=== PATIENT | female | born 1970 | race Caucasian/White ===

== ENCOUNTER 2018-11-03 13:33 | Emergency (ER) | payer MEDICAID ==
[~2018-11-03] VITALS: Ht 162.6 cm; Wt 70.3 kg
[2018-11-03 14:24] VITALS: BP 164/91
--- NOTE | 2018-11-03 14:54 | NUR ---
Patient discharged to home in stable condition. Written and verbal after care instructions given. Patient verbalizes understanding of instruction.
== END 2018-11-03 14:53 | disposition home or self-care (01) ==
LOC: ER 13:33
DX: J40 Bronchitis, not specified as acute or chronic (principal)
CPT/HCPCS: A4606; Z7610